=== PATIENT | male | born 1955 | race Caucasian/White ===

== ENCOUNTER 2020-07-31 02:28 | Outpatient (CLI) | payer MEDICARE, SELFPAY ==
[2020-07-31 19:32] LABS: SARS-CoV-2 RNA PCR Positive
== END 2020-07-31 02:29 | disposition home or self-care (01) ==
LOC: ANHCOVIDDT 02:28
PROVIDERS: PCP Internal Medicine; Visit Provider Otolaryngology
DX: U07.1 COVID-19 (principal)
CPT/HCPCS: C9803; U0003

== ENCOUNTER 2020-08-31 01:47 | Day surgery (SDC) | payer MEDICARE, SELFPAY ==
[2020-07-27 12:55] VITALS: BMI 31.9
[2020-08-23 11:11] VITALS: BMI 31.9
--- NOTE | 2020-08-30 06:27 | PM.HPGS ---
History of Present Illness History of Present Illness Consent: Risks, benefits, and alternatives have been discussed and questions answered. Patient agrees to proceed with procedure. 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 Social History Social History (Updated 07/08/20 @ 11:10 by Leslie Brock, [facility]) Smoking status: Never smoker Second hand tobacco smoke exposure: No Alcohol intake: current Drinks per week: 2 Substance use: never Substance use type: does not use Spiritual care concerns: No Meds Home Medications and Allergies Home Medications Medication Instructions Recorded Confirmed Type amlodipine 5 mg tablet 5 mg PO DAILY 10/13/19 08/23/20 History aspirin 81 mg tablet,delayed 81 mg PO DAILY 10/13/19 08/23/20 History release lovastatin 20 mg tablet 20 mg PO QAM 10/13/19 08/23/20 History ibuprofen 800 mg tablet 800 mg PO EVERY OTHER DAY 07/08/20 08/23/20 History pantoprazole 40 mg tablet,delayed 40 mg PO EVERY OTHER DAY 07/08/20 08/23/20 History release vitamins A,C,P-xbev-pbjpas 14,320 1 cap PO QAM 07/08/20 08/23/20 History unit-226 mg-200 unit capsule Lactobacillus acidophilus 1 tablet PO DAILY 07/27/20 08/23/20 History [Acidophilus] Allergies Allergy/AdvReac Type Severity Reaction Status Date / Time No Known Allergies Allergy Verified 08/23/20 11:10 Assessment and Plan Additional Plan left tympanoplasties being done
--- NOTE | 2020-08-30 10:50 | P.PNAN_ITS ---
Anes - Initial Pre Proc Eval Procedure: Operation Date: 08/31/20 08:15 Proposed Procedures p Left Tympanoplasty - Naga Yeung MD Date/Time: 08/30/20 10:50 Surgeon: Naga Yeung MD Pre Op Diagnosis: left tm perforation Patient Data Age: 65 Gender: M Height: 1.91 m Weight: 115.9 kg Allergies Allergy/AdvReac Type Severity Reaction Status Date / Time No Known Allergies Allergy Verified 08/31/20 06:47 Home Medications Medication Instructions Recorded Confirmed Type amlodipine 5 mg tablet 5 mg PO DAILY 10/13/19 08/31/20 History aspirin 81 mg tablet,delayed 81 mg PO DAILY 10/13/19 08/31/20 History release lovastatin 20 mg tablet 20 mg PO QAM 10/13/19 08/31/20 History ibuprofen 800 mg tablet 800 mg PO EVERY OTHER DAY 07/08/20 08/31/20 History pantoprazole 40 mg tablet,delayed 40 mg PO EVERY OTHER DAY 07/08/20 08/31/20 History release vitamins A,C,J-ltgc-ldezud 14,320 1 cap PO QAM 07/08/20 08/31/20 History unit-226 mg-200 unit capsule Lactobacillus acidophilus 1 tablet PO DAILY 07/27/20 08/31/20 History [Acidophilus] Patient hx anesthesia problems: none Family hx anesthesia problems: none [facility] Past Medical History Medical History (Updated 08/30/20 @ 10:51 by Dariel Saavedra MD) Chronic GERD 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 HTN (hypertension) Hyperlipidemia HECTOR on CPAP Prostate CA Social History Social History (Updated 07/08/20 @ 11:10 by Leslie Brock CMA) Smoking status: Never smoker Second hand tobacco smoke exposure: No Alcohol intake: current Drinks per week: 2 Substance use: never Substance use type: does not use Living arrangements: with family Spiritual care concerns: No Anes - Eval Final PreProcedure Day of Procedure 08/30/20 10:50 Patient weight: obese Heart: regular rate and rhythm Lungs: clear to auscultation and normal air movement Airway: Mallampati scale class II Neurological: alert and oriented Last oral intake: >/= 8 hours ASA classification: III Emergent: no Anesthetic plan: proceed Anesthesia type and monitoring: general ETT Informed Consent: The patient's anesthetic plan and its attendant risks and benefits were discussed with the patient/family/POA. Questions were solicited and answers provided to the satisfaction of the patient/family/POA.
[2020-08-31] VITALS (8 sets, daily range): BP systolic 116–133; BP diastolic 78–94; PULSE 73–97; RESP 14–16; TEMP 36.2–36.5; O2SAT 97–100
--- NOTE | 2020-08-31 05:46 | WPDHPUPDATE1 ---
History and Physical Update Update Date/Time: 08/31/20 05:46 History and Physical has been reviewed, including an updated exam of the patient. There are NO changes in the patient's condition. Risks, benefits, and alternatives have been discussed and questions answered. Patient agrees to proceed with procedure.
[2020-08-31] MEDS: LACTATED RINGERS 1,000 ML 30 ML IV CONT (07:43)
[2020-08-31] MEDS: CIPROFLOXACIN HCL 0.3% OP SOLN 2.5 ML BTL 4 DROP EACH EAR (08:39)
[2020-08-31] MEDS: LIDO 1%/EPINEPHRINE 1:100,000 50 ML VIAL INFILTRATE (08:41)
--- NOTE | 2020-08-31 09:08 | PM.PROC ---
Procedure Note - Detailed Date of procedure: 08/31/20 Pre-op diagnosis: left tm perforation Post-op diagnosis: same Procedure performed: Left tympanoplasty Description of procedure: Patient prepped and draped, the ear was inspected inspection revealed a [] perforation. The vascular strip was injected with xylocaine with adrenaline. Postauricular region was injected with xylocaine with adrenaline and incision was made and temporalis Parres fascia graft harvested closed with Monocryl and glue consent and the bed of the fascia graft was crushed and dried the ear was inspected edges of the perforation strip of squame with a small straight pick. The graft placed in an underlay fashion after packing the middle ear with Surgicel. The patient awakened returned to recovery in good condition Surgeon: Naga Yeung MD Estimated blood loss (mL): 0 Drains: No Packing: No Pathology: none sent Complications: No immediate complications Condition: stable Disposition: PACU Findings: Left tympanic membrane perforation
== END 2020-08-31 10:20 | disposition home or self-care (01) ==
PROVIDERS: PCP Internal Medicine; Visit Provider Otolaryngology
PROC: (CPT 69631; principal; 2020-08-31 08:15)
DX: H72.92 Unspecified perforation of tympanic membrane, left ear (principal); I10 Essential (primary) hypertension; E78.5 Hyperlipidemia, unspecified; G47.33 Obstructive sleep apnea (adult) (pediatric); K21.9 Gastro-esophageal reflux disease without esophagitis; Z85.46 Personal history of malignant neoplasm of prostate; E66.9 Obesity, unspecified; Z68.33 Body mass index [BMI] 33.0-33.9, adult
CPT/HCPCS: 69631; A9270; J0171; J1100; J2250; J2405; J2704; J3010; J7120